=== PATIENT | female | born 1980 | race Hispanic/Latino ===

== ENCOUNTER 2017-04-28 05:59 | Outpatient (CLI) | payer BC, OTHER ==
[2017-04-28 07:48] LABS: Bacteria,Urine 1+ /HPF (Negative); Bilirubin,Urine NEG (Negative); Blood,Urine MOD (Negative); Ketones,Urine NEG (Negative); Leukocyte Esterase,Urine NEG (Negative); Nitrite,Urine NEG (Negative); Protein,Urine <15 mg/dL mg/dL (Negative); Urobilinogen,Urine < 2.0 mg/dL (<2.0)
[2017-04-28 08:03] LABS: Alanine Aminotransferase 10 units/L (7-56); Albumin 4.6 g/dL (3.9-5); Albumin/Globulin Ratio 1.3 %; Alkaline Phosphatase 61 units/L (35-129); Anion Gap 18 mmol/L; BUN/Creatinine Ratio 28.57; Blood Urea Nitrogen 20 mg/dL (7-17); Calcium 9.8 mg/dL (8.4-10.2); Carbon Dioxide 26 mmol/L (22-30); Chloride 97.4 mmol/L (98-107); Glucose 105 mg/dL (65-100); Potassium 3.5 mmol/L (3.6-5.0); Sodium 138 mmol/L (137-145); Total Protein 8.2 g/dL (6.3-8.2)
== END 2017-04-28 06:00 | disposition home or self-care (01) ==
LOC: LAB 05:59
PROVIDERS: ATTEND Internal Medicine
DX: I10 Essential (primary) hypertension (principal); Z79.899 Other long term (current) drug therapy
CPT/HCPCS: 36415; 80053; 81001; 83735

== ENCOUNTER 2017-07-30 06:58 | Outpatient (CLI) | payer BC ==
--- NOTE | 2017-07-30 10:00 | Mammography Report ---
Bilateral mammogram: No previous studies available. CAD study utilized. Findings: Heterogeneous breast parenchyma bilaterally. No microcalcification. Focal low density asymmetry upper posterior right breast. Normal axilla. Impression: Focal asymmetry upper posterior right breast. Comparison with previous studies is recommended. If previous studies are not available spot mag and venous study sonographic examination advised. BI-RADS CATEGORY: 0 = Needs additional imaging evaluation ACR BI-RADS MAMMOGRAPHIC CODES: 0 = Needs additional imaging evaluation; 1 = Negative; 2 = Benign; 3 = Probably benign; 4 = Suspicious; 5 = Malignant; 6 = Known biopsy-proven malignancy COMMENT: 1. Dense breast tissue, i.e., adenosis, fibrocystic changes, etc., may obscure an underlying neoplasm. 2. Approximately 10% of cancers are not detected with mammography. 3. A negative mammography report should not delay biopsy if a clinically suspicious mass is present. COMMENT: Patient follow-up letters are generated in [employer].
== END 2017-07-30 06:59 | disposition home or self-care (01) ==
LOC: MAMMO 06:58
PROVIDERS: ATTEND Obstetrics & Gynecology
DX: Z12.31 Encounter for screening mammogram for malignant neoplasm of breast (principal); I10 Essential (primary) hypertension
CPT/HCPCS: 36415; 82672; 84144; 84146; 84439; 84443; G0202; 77067

== ENCOUNTER 2017-08-22 14:05 | Outpatient (CLI) | payer BC ==
--- NOTE | 2017-08-22 15:23 | Mammography Report ---
Right mammogram and right breast ultrasound: Based on recent screening exam additional compression imaging of the right breast is performed. The 1 cm asymmetry is constant on a MLO spot compression and less evident on the straight lateral whole breast compression. The density is slightly inhomogeneous and the margins are relatively defined. There is no calcification. It is not identified in the CC view. Ultrasound of the superior breast demonstrates a 5 mm cyst close to the nipple but there is no finding in the region of the expected asymmetry. Impression: Persistent right asymmetry having no suspicious characteristics. Recommendation: Repeat mammogram in 6 months. Patient informed of findings and recommendation. BI-RADS CATEGORY: 3 = Probably benign ACR BI-RADS MAMMOGRAPHIC CODES: 0 = Needs additional imaging evaluation; 1 = Negative; 2 = Benign; 3 = Probably benign; 4 = Suspicious; 5 = Malignant; 6 = Known biopsy-proven malignancy COMMENT: 1. Dense breast tissue, i.e., adenosis, fibrocystic changes, etc., may obscure an underlying neoplasm. 2. Approximately 10% of cancers are not detected with mammography. 3. A negative mammography report should not delay biopsy if a clinically suspicious mass is present.
== END 2017-08-22 14:06 | disposition home or self-care (01) ==
LOC: MAMMO 14:05
PROVIDERS: ATTEND Obstetrics & Gynecology
DX: N60.01 Solitary cyst of right breast (principal); N64.89 Other specified disorders of breast
CPT/HCPCS: 76642; G0206

== ENCOUNTER 2018-01-08 22:11 | Emergency (ER) | payer BC ==
[2018-01-08] MEDS ORDERED: MOTRIN PO ONE (22:14)
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
[2018-01-08 22:41] VITALS: BP 144/97
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
== END 2018-01-08 23:54 | disposition home or self-care (01) ==
LOC: ED 22:11
DX: J32.9 Chronic sinusitis, unspecified (principal); V89.2XXA Person injured in unspecified motor-vehicle accident, traffic, initial encounter; Z88.2 Allergy status to sulfonamides; Y93.89 Activity, other specified; Y92.89 Other specified places as the place of occurrence of the external cause; Y99.8 Other external cause status
CPT/HCPCS: 70450; 70486; 99283

== ENCOUNTER 2018-05-21 15:48 | Emergency (ER) | payer OTHER, BC ==
[2018-05-21] MEDS ORDERED: SUBLIMAZE IV ONE ×2 (16:50→18:23)
[2018-05-21] MEDS ORDERED: ZOFRAN IV ONE (16:50)
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
[2018-05-21 18:19] VITALS: BP 125/88
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
[2018-05-21] MEDS ORDERED: NORCO 5/325 PO ONE (19:29)
[2018-05-21] MEDS ORDERED: TORADOL IV ONE (19:29)
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
== END 2018-05-21 20:19 | disposition home or self-care (01) ==
LOC: ED 15:48
DX: S16.1XXA Strain of muscle, fascia and tendon at neck level, initial encounter (principal); S39.012A Strain of muscle, fascia and tendon of lower back, initial encounter; S29.012A Strain of muscle and tendon of back wall of thorax, initial encounter; S09.90XA Unspecified injury of head, initial encounter; I10 Essential (primary) hypertension; Z90.89 Acquired absence of other organs; V49.09XA Driver injured in collision with other motor vehicles in nontraffic accident, initial encounter; Y93.89 Activity, other specified; Y99.8 Other external cause status; Y92.488 Other paved roadways as the place of occurrence of the external cause
CPT/HCPCS: 36415; 70450; 71045; 72070; 72125; 72202; 84703; 96374; 96375; 96376; 99284; J1885; J2405; J3010

== ENCOUNTER 2018-07-09 13:38 | Outpatient (CLI) | payer BC ==
--- NOTE | 2018-07-10 13:20 | Magnetic Resonance Report ---
MRI CERVICAL SPINE WITHOUT CONTRAST: 07/09/18 14:00:00 CLINICAL: Neck pain. TECHNIQUE: Sagittal T1,T2 and STIR and axial gradient T2* sequences on a 1.5 Alyson magnet. FINDINGS:The quality of the exam is degraded by motion. Decreased height of the C5 and C6 vertebral bodies and reversal of curvature at C5-6. Normal alignment through T4. Mild disc space narrowing at C4-5 and C5-6 and disc desiccation with decreased T2 disc signal from C3-4 through C7-T1. The overall marrow signal is normal. The cerebellar tonsils are in normal position. Abnormal heterogeneous hyperintense cord signal from C2-C6. C2-3: Intact. C3-4:Thickening of the posterior longitudinal ligament and small broad-based disc-osteophyte producing minimal canal stenosis. A right uncal osteophyte and mild right neural foraminal narrowing. C4-5: A large right paracentral focal disc protrusion with an associated small osteophyte. It produces narrowing of the right lateral recess and compression of the cord. Uncal osteophytes and mild bilateral neural foraminal stenosis. C5-6:A large central and left paracentral disc protrusion with an associated small osteophyte. The left paracentral component of the disc protrusion is larger and produces compression of the cord along with narrowing of the left lateral recess. Mild central spinal canal stenosis with the AP diameter of the canal measuring 8.6 mm. C6-7:A small broad-based right paracentral disc-osteophyte producing no spinal canal stenosis or cord compression. Moderate right neural foraminal stenosis secondary to osteophyte. C7-T1:Intact. IMPRESSION: Multilevel degenerative disc disease with disc protrusions and osteophytes from C3-4 through C6-7. Mild cord compression at C4-5 and C5-6 and mild cord edema C2-C6. Mild central spinal canal stenosis at C5-6.
== END 2018-07-09 13:39 | disposition home or self-care (01) ==
LOC: MRI 13:38
DX: M50.323 Other cervical disc degeneration at C6-C7 level (principal); M50.223 Other cervical disc displacement at C6-C7 level; M25.78 Osteophyte, vertebrae; M48.02 Spinal stenosis, cervical region; I10 Essential (primary) hypertension
CPT/HCPCS: 72141

== ENCOUNTER 2018-07-29 07:26 | Outpatient (CLI) | payer BC ==
[2018-07-29 07:56] LABS: Bilirubin,Urine NEG (Negative); Blood,Urine SM (Negative); Color,Urine Straw (Yellow); Protein,Urine <15 mg/dL mg/dL (Negative); Urobilinogen,Urine < 2.0 mg/dL (<2.0)
[2018-07-29 08:08] LABS: Hematocrit 41.1 % (30.3-42.9); Hemoglobin 13.9 gm/dl (10.1-14.3); Mean Corpuscular HGB Conc 34 % (30-34); Mean Corpuscular Hemoglobin 31 pg (28-32); Mean Corpuscular Volume 91 fl (79-97); Platelet Count 235 K/mm3 (140-440); Red Blood Count 4.51 M/mm3 (3.65-5.03); Red Cell Distribution Width 13.4 % (13.2-15.2)
[2018-07-29 08:20] LABS: Alanine Aminotransferase 11 units/L (7-56); Albumin 4.5 g/dL (3.9-5); BUN/Creatinine Ratio 18; Blood Urea Nitrogen 16 mg/dL (7-17); Calcium 9.2 mg/dL (8.4-10.2); Hemolysis Index 8
== END 2018-07-29 07:27 | disposition home or self-care (01) ==
LOC: LAB 07:26
PROVIDERS: ATTEND Internal Medicine
DX: I10 Essential (primary) hypertension (principal)
CPT/HCPCS: 36415; 80053; 81001; 83735; 85027

== ENCOUNTER 2022-04-27 02:01 | Emergency (ER) | payer BC ==
[2022-04-27] MEDS ORDERED: ACETAMINOPHEN 500 MG TAB PO ONE (02:06)
[2022-04-27] MEDS ORDERED: SODIUM CHLORIDE 0.9% 1000 ML 1,000 ML IV ONE (02:42)
--- NOTE | 2022-04-27 02:47 | Emergency Department Report ---
ED General Adult HPI - General Chief complaint: Fever Stated complaint: FEVER Time Seen by Provider: 04/27/22 02:41 Source: patient Mode of arrival: Ambulatory Limitations: No Limitations - History of Present Illness Initial comments: Patient 41-year-old female who presents for fever malaise chills sudden onset tonight. Patient denies nausea vomiting. T-max is 103.2. Patient denies cough. Patient is COVID vaccinated. Patient states history of recent dental caries. There is no facial swelling no throat or ear pain. There is no cough no shortness of breath no wheezing. Patient denies dysuria frequency or urgency. Patient does endorse left flank pain however. - Related Data Home Medications Medication Instructions Recorded Confirmed Last Taken Famotidine [Pepcid] 10 mg PO BID 11/04/13 11/23/13 11/23/13 10:00 10 mg Metoprolol [Lopressor TAB] 25 mg PO DAILY 11/04/13 11/23/13 11/23/13 12:00 50 mg Vit No.126/Iron/Folic 1 tab PO DAILY 11/04/13 11/23/13 11/22/13 [Classic Tablet] 1 tablet Previous Rx's Medication Instructions Recorded Last Taken Type Ibuprofen [Motrin 800 MG tab] 800 mg PO TID PRN #30 tablet 11/23/13 Unknown Rx oxyCODONE /ACETAMINOPHEN [Percocet 1 - 2 tab PO Q4HR PRN #30 tablet 11/23/13 Unknown Rx 5/325 mg] Amoxicillin/K Clav Tab [Augmentin 1 tab PO Q12HR #20 tab 01/08/18 Unknown Rx 875 mg] Cyclobenzaprine [Flexeril] 10 mg PO QHS PRN #7 tablet 01/08/18 Unknown Rx Ibuprofen [Motrin] 600 mg PO Q8H PRN #30 tablet 01/08/18 Unknown Rx Cyclobenzaprine [Flexeril] 10 mg PO TID PRN #14 tablet 05/21/18 Unknown Rx HYDROcodone/APAP 5-325 [[place] 1 - 2 each PO Q6HR PRN #14 tablet 05/21/18 Unknown Rx 5/325] Ibuprofen [Motrin 800 MG tab] 800 mg PO Q8HR PRN #20 tablet 05/21/18 Unknown Rx Acetaminophen [Acetaminophen TAB] 1,000 mg PO Q6HR PRN #60 tablet 04/27/22 Unknown Rx Ondansetron [Zofran Odt] 4 mg PO Q8HR #12 tab.rapdis 04/27/22 Unknown Rx Allergies Allergy/AdvReac Type Severity Reaction Status Date / Time Sulfa (Sulfonamide Allergy Nausea Verified 11/02/13 13:56 Antibiotics) ED Review of Systems ROS: Stated complaint: FEVER Other details as noted in HPI Constitutional: denies: chills, fever Eyes: denies: eye pain, eye discharge, vision change ENT: denies: ear pain, throat pain Respiratory: denies: cough, shortness of breath, wheezing Cardiovascular: denies: chest pain, palpitations Endocrine: no symptoms reported Gastrointestinal: abdominal pain. denies: nausea, vomiting, diarrhea Genitourinary: denies: urgency, dysuria, frequency, hematuria, discharge, abnormal menses, dyspareunia Musculoskeletal: back pain (Left flank pain left flank) Skin: denies: rash, lesions Neurological: denies: headache, weakness, paresthesias, vertigo Psychiatric: denies: anxiety, depression Hematological/Lymphatic: denies: easy bleeding, easy bruising ED Past Medical Hx - Past Medical History Hx Hypertension: (chronic hypertension with PIH) Hx Congestive Heart Failure: No Hx Diabetes: No Hx Deep Vein Thrombosis: No Hx Renal Disease: Yes (Adult Polycystic Kidney Disease) Hx Sickle Cell Disease: No Hx Seizures: No Hx Asthma: No Hx COPD: No Hx HIV: No - Surgical History Additional Surgical History: , tonsillectomy - Social History Smoking Status: Never Smoker Substance Use Type: None - Medications Home Medications: Home Medications Medication Instructions Recorded Confirmed Last Taken Type Famotidine [Pepcid] 10 mg PO BID 11/04/13 11/23/13 11/23/13 10:00 History 10 mg Metoprolol [Lopressor TAB] 25 mg PO DAILY 11/04/13 11/23/13 11/23/13 12:00 History 50 mg Vit No.126/Iron/Folic 1 tab PO DAILY 11/04/13 11/23/13 11/22/13 History [Classic Tablet] 1 tablet Ibuprofen [Motrin 800 MG tab] 800 mg PO TID PRN #30 tablet 11/23/13 Unknown Rx oxyCODONE /ACETAMINOPHEN [Percocet 1 - 2 tab PO Q4HR PRN #30 tablet 11/23/13 Unknown Rx 5/325 mg] Amoxicillin/K Clav Tab [Augmentin 1 tab PO Q12HR #20 tab 01/08/18 Unknown Rx 875 mg] Cyclobenzaprine [Flexeril] 10 mg PO QHS PRN #7 tablet 01/08/18 Unknown Rx Ibuprofen [Motrin] 600 mg PO Q8H PRN #30 tablet 01/08/18 Unknown Rx Cyclobenzaprine [Flexeril] 10 mg PO TID PRN #14 tablet 05/21/18 Unknown Rx HYDROcodone/APAP 5-325 [[place] 1 - 2 each PO Q6HR PRN #14 tablet 05/21/18 Unknown Rx 5/325] Ibuprofen [Motrin 800 MG tab] 800 mg PO Q8HR PRN #20 tablet 05/21/18 Unknown Rx Acetaminophen [Acetaminophen TAB] 1,000 mg PO Q6HR PRN #60 tablet 04/27/22 Unknown Rx Ondansetron [Zofran Odt] 4 mg PO Q8HR #12 tab.rapdis 04/27/22 Unknown Rx ED Physical Exam - General Limitations: No Limitations General appearance: alert, in no apparent distress - Head Head exam: Present: atraumatic, normocephalic - Eye Eye exam: Present: normal appearance, EOMI Pupils: Present: normal accommodation - ENT ENT exam: Present: normal orophraynx, mucous membranes moist - Neck Neck exam: Present: normal inspection. Absent: tenderness, lymphadenopathy - Respiratory Respiratory exam: Present: normal lung sounds bilaterally. Absent: respiratory distress, wheezes, stridor, chest wall tenderness - Cardiovascular Cardiovascular Exam: Present: regular rate, normal rhythm, normal heart sounds. Absent: systolic murmur, diastolic murmur, rubs, gallop - GI/Abdominal GI/Abdominal exam: Present: soft, normal bowel sounds. Absent: distended, tenderness, guarding, rebound, rigid, bruit, hernia - Rectal Rectal exam: Present: deferred - Extremities Exam Extremities exam: Present: normal inspection, full ROM, normal capillary refill - Back Exam Back exam: Present: full ROM, CVA tenderness (L). Absent: CVA tenderness (R) - Neurological Exam Neurological exam: Present: alert, oriented X3, CN II-XII intact, normal gait - Expanded Neurological Exam Expanded Patient oriented to: Present: person, place, time Speech: Present: fluid speech Motor strength exam: RUE: 5, LUE: 5, RLE: 5, LLE: 5 Best Eye Response ([place]): (4) open spontaneously Best Motor Response ([place]): (6) obeys commands Best Verbal Response ([place]): (5) oriented [place] Total: 15 - Psychiatric Psychiatric exam: Present: normal affect, normal mood - Skin Skin exam: Present: warm, dry, intact, normal color. Absent: rash ED Course Vital Signs 04/27/22 02:04 Temperature 103.0 F H Pulse Rate 123 H Respiratory 18 Rate Blood Pressure 142/99 O2 Sat by Pulse 100 Oximetry ED Medical Decision Making - Lab Data Result diagrams: 04/27/22 02:46 04/27/22 02:46 Labs 04/27/22 04/27/22 04/27/22 02:46 02:46 Unknown WBC 5.2 RBC 4.12 Hgb 12.6 Hct 37.5 MCV 91 MCH 31 MCHC 34 RDW 12.7 L Plt Count 153 Lymph % (Auto) 3.4 L [place] % (Auto) 6.2 Eos % (Auto) 1.6 Baso % (Auto) 0.4 Lymph # (Auto) 0.2 L [place] # (Auto) 0.3 Eos # (Auto) 0.1 Baso # (Auto) 0.0 Seg Neutrophils % 88.4 H Seg Neutrophils # 4.6 Sodium 133 L Potassium 3.4 L Chloride 96.4 L Carbon Dioxide 23 Anion Gap 17 BUN 17 Creatinine 0.9 Estimated GFR > 60 BUN/Creatinine Ratio 19 Glucose 99 Calcium 9.1 Total Bilirubin 0.40 AST 16 ALT 12 Alkaline Phosphatase 62 Total Protein 6.6 Albumin 4.4 Albumin/Globulin Ratio 2.0 Urine Color Yellow Urine Turbidity Clear Urine pH 5.0 Ur Specific [place] 1.015 Urine Protein <15 mg/dl Urine Glucose (UA) Negative Urine Ketones Negative Urine Blood 1+ Urine Nitrite Negative Ur Reducing Substances Not Reportable Urine Bilirubin Negative Urine Ictotest Not Reportable Urine Urobilinogen < 2.0 Ur Leukocyte Esterase Negative Urine WBC (Auto) 1.0 Urine RBC (Auto) 1.0 U Epithel Cells (Auto) 2.0 Urine Bacteria (Auto) 1+ Urine Mucus Few Urine HCG, Qual Negative - Radiology Data Radiology results: report reviewed, image reviewed HEST 2 VIEWS INDICATION / CLINICAL INFORMATION: fever tachycardia. COMPARISON: None available. FINDINGS: SUPPORT DEVICES: None. HEART / MEDIASTINUM: Heart size and mediastinal contour appear within normal limits. LUNGS / PLEURA: No significant pulmonary or pleural abnormality. No pneumothorax. BONES: No significant osseous abnormality. ADDITIONAL FINDINGS: No significant additional findings. IMPRESSION: 1. No active cardiopulmonary disease. Signer Name: Clary Childers II, MD Signed: 04/27/2022 5:05 AM Workstation Name: [id number] Transcribed By: ED Dictated By: CLARY CHILDERS II, MD Electronically Authenticated By: CLARY CHILDERS II, MD Signed Date/Time: 04/27/22504 DD/ 4 TD/TT: - Medical Decision Making Patient advised that symptoms are improved with medications given in ED. Chest x-ray is normal no infiltrates no opacities, urine is normal, fever is resolved plan DC to home, follow-up with health department or primary care for COVID testing, follow-up with occupational health after culture results for instructions on returning to work. Return to emergency department should symptoms worsen. Critical care attestation.: If time is entered above; I have spent that time in minutes in the direct care of this critically ill patient, excluding procedure time. ED Disposition Clinical Impression: Viral illness Disposition: 01 HOME / SELF CARE / HOMELESS Is pt being admited?: No Does the pt Need Aspirin: No Condition: Stable Instructions: Viral Illness, Adult Additional Instructions: Take medications as prescribed, follow-up with your doctor in 2 to 3 days. Continue to hydrate as directed. Follow-up with health department or primary care for COVID screening. Prescriptions: Acetaminophen [Acetaminophen TAB] 1,000 mg PO Q6HR PRN #60 tablet PRN Reason: pain fever Ondansetron [Zofran Odt] 4 mg PO Q8HR #12 tab.rapdis Referrals: LINDSEY MORALES MD [Staff Physician] - 3-5 Days Forms: Work/School Release Form(ED) Time of Disposition: 05:43
[2022-04-27] MEDS ORDERED: cefTRIAXone/NS 1 GM/50 ML 1 GM/50 ML BAG IV ONE (02:48)
[2022-04-27 03:08] LABS: Bacteria,Urine 1+ /HPF (Negative); Mucus,Urine FEW /HPF
[2022-04-27 03:10] LABS: Basophils % (Auto) 0.4 % (0.0-1.8); Eosinophils # (Auto) 0.1 K/mm3 (0.0-0.4); Eosinophils % (Auto) 1.6 % (0.0-4.3); Hematocrit 37.5 % (30.3-42.9); Hemoglobin 12.6 gm/dl (10.1-14.3); Lymphocytes # (Auto) 0.2 K/mm3 (1.2-5.4); Lymphocytes % (Auto) 3.4 % (13.4-35.0); Mean Corpuscular HGB Conc 34 % (30-34); Mean Corpuscular Volume 91 fl (79-97); Monocytes # (Auto) 0.3 K/mm3 (0.0-0.8); Monocytes % (Auto) 6.2 % (0.0-7.3); Platelet Count 153 K/mm3 (140-440); Red Blood Count 4.12 M/mm3 (3.65-5.03); Red Cell Distribution Width 12.7 % (13.2-15.2)
[2022-04-27 03:27] LABS: Bilirubin,Urine Negative (Negative); Blood,Urine 1+ (Negative); Color,Urine Yellow (Yellow); HCG Qualitative,Urine Negative (Negative); Protein,Urine <15 mg/dL mg/dL (Negative); Urobilinogen,Urine < 2.0 mg/dL (<2.0)
[2022-04-27 03:29] LABS: Alanine Aminotransferase 12 units/L (7-56); Albumin 4.4 g/dL (3.9-5); BUN/Creatinine Ratio 19; Blood Urea Nitrogen 17 mg/dL (7-17); Calcium 9.1 mg/dL (8.4-10.2); Hemolysis Index 8
--- NOTE | 2022-04-27 05:10 | XRay Report ---
CHEST 2 VIEWS INDICATION / CLINICAL INFORMATION: fever tachycardia. COMPARISON: None available. FINDINGS: SUPPORT DEVICES: None. HEART / MEDIASTINUM: Heart size and mediastinal contour appear within normal limits. LUNGS / PLEURA: No significant pulmonary or pleural abnormality. No pneumothorax. BONES: No significant osseous abnormality. ADDITIONAL FINDINGS: No significant additional findings. IMPRESSION: 1. No active cardiopulmonary disease. Signer Name: Geovanni Childers II, MD Signed: 04/27/2022 5:05 AM Workstation Name: [id number]
[2022-04-27 05:50] VITALS: BP 124/91
== END 2022-04-27 06:15 | disposition home or self-care (01) ==
LOC: ED 02:01
DX: B34.9 Viral infection, unspecified (principal); R50.9 Fever, unspecified; Z90.89 Acquired absence of other organs; Z98.890 Other specified postprocedural states; Z88.2 Allergy status to sulfonamides; Z79.899 Other long term (current) drug therapy
CPT/HCPCS: 36415; 71046; 80053; 81001; 81025; 85025; 96365; 99284; J0696; J7030